=== PATIENT | male | born 1975 | race Caucasian/White ===

== ENCOUNTER 2019-09-14 16:31 | Outpatient (CLI) | payer BC, SELFPAY ==
--- NOTE | ~2019-09-14 | US_ITS ---
US renal BI 09/14/2019 17:44 Procedure: Realtime transabdominal ultrasound of the kidneys and bladder. Indication: Difficulty urinating Comparison: No prior studies for comparison. Findings: Renal echotexture is normal bilaterally without hydronephrosis, contour deforming mass or r enal calculus. The right kidney measures 9.8 cm and left kidney measures 10.7 cm. Bladder within nor mal limits. Mildly enlarged prostate gland. Prostate measures 4.3 x 2.5 x 4.3 cm. Impression: 1: Unremarkable renal ultrasound. No stones, masses or hydronephrosis. Reviewed, dictated and finalized at location A. L[employer] TECHNICIAN Impression: 1: Unremarkable renal ultrasound. No stones, masses or hydronephrosis.
== END 2019-09-14 16:32 | disposition home or self-care (01) ==
LOC: ANHIMG 16:51
PROVIDERS: PCP Emergency Medicine; Visit Provider Emergency Medicine
DX: N28.9 Disorder of kidney and ureter, unspecified (principal)
CPT/HCPCS: 76775